=== PATIENT | female | born 1970 | race Two or more races ===

== ENCOUNTER 2018-08-25 13:51 | Outpatient (CLI) | payer OTHER ==
[~2018-08-25] VITALS: Ht 157.5 cm; Wt 120.7 kg
== END 2018-08-25 14:10 | disposition home or self-care (01) ==
LOC: OFIC 805 13:51
DX: S01.32 Laceration with foreign body of ear (principal); H60.8X2 Other otitis externa, left ear; H92.22 Otorrhagia, left ear

== ENCOUNTER 2020-11-08 06:05 | Day surgery (SDC) | payer OTHER ==
[~2020-11-08 06:05] MED LIST: TOPROL XL25 M1 PO
== END 2020-11-08 14:40 | disposition home or self-care (01) ==
LOC: CIR.AMB 06:05
PROVIDERS: ATTEND Student in an Organized Health Care Education/Training Program
DX: N84.0 Polyp of corpus uteri (principal); Z20.822 Contact with and (suspected) exposure to COVID-19